=== PATIENT | male | born 1950 | race Caucasian/White ===

== ENCOUNTER 2020-12-02 17:22 | Inpatient (IN) | payer OTHER, MEDICAID ==
[~2020-12-02] VITALS: Ht 180.3 cm; Wt 71.7 kg
[2020-12-02 17:25] VITALS: BP_SYST 152
--- NOTE | 2020-12-02 17:25 | NUR ---
Placed in room 4 . Placed on scientist engineer, blood pressure machine and pulse oximeter. To gown for exam. Side rails up. Report given to ADOLPH FREDERICK
--- NOTE | 2020-12-02 17:28 | NUR ---
PT BIBA FROM [facility] SENT BY DR. SALINAS. PT HAS BEEN C/O ABD PAIN HAD ABNORMAL LABS COME BACK TODAY WBC 24.6. PT HAD SMALL BOWEL RESECTION 10/29/20 [facility]- WOUND HAS PURULENT DRAINAGE. HX OF COLON CA. PT ARRIVES WITH RODRÍGUEZ CATH, UROSTOMY, COLOSTOMY. PT IS AAOX4, V/S STABLE
[2020-12-02] MEDS ORDERED: NACL 0.9% 1,000 ML IV ONE ×2 (17:45→19:15)
[2020-12-02] MEDS ORDERED: ACET325C6 PO (17:57)
[2020-12-02] MEDS ORDERED: ZIN220 PO (17:57)
[2020-12-02] MEDS ORDERED: CAT.1 PO (17:57)
[2020-12-02] MEDS ORDERED: FAMO10TA41 PO (17:57)
[2020-12-02] MEDS ORDERED: LISI-652 PO (17:57)
[2020-12-02] MEDS ORDERED: MEGE400O4 GT (17:57)
[2020-12-02] MEDS ORDERED: CRAN500T PO (17:57)
[2020-12-02] MEDS ORDERED: BUSP7.5T7 PO (17:57)
[2020-12-02] MEDS ORDERED: ARGI1POW13 PO (17:57)
[2020-12-02] MEDS ORDERED: ONDA-8 TL (17:57)
[2020-12-02] MEDS ORDERED: NOR10 PO (17:57)
[2020-12-02] MEDS ORDERED: ASC500 PO (17:57)
[2020-12-02] MEDS ORDERED: DULR10 RC (17:57)
[2020-12-02] MEDS ORDERED: HYDR-3919 PO (17:57)
[2020-12-02] MEDS ORDERED: CHOL100034 PO (17:57)
[2020-12-02] MEDS ORDERED: CALMO120 TP (17:57)
[2020-12-02] MEDS ORDERED: AMIN30LI26 PO (17:57)
[2020-12-02] MEDS ORDERED: LOVI40 SQ (17:57)
[2020-12-02] MEDS ORDERED: SERT-436 PO (17:57)
[2020-12-02] MEDS ORDERED: ATOR20TA64 PO (17:57)
--- NOTE | 2020-12-02 17:57 | NUR ---
Medication reconciliation completed with information provided by [facility]. Any prior medication reconciliation on file was reviewed and corrected.
[2020-12-02 18:18] LABS: BILIRUBIN,URINE 1+ (NEGATIVE); BLOOD, URINE 3+ (NEGATIVE); CLARITY/URINE TURBID (CLEAR); COLOR,URINE YELLOW (YELLOW); GLUCOSE,URINE NEGATIVE (NEGATIVE); KETONES,URINE NEGATIVE (NEGATIVE); LEUKOCYTE ESTERASE ,URINE 3+ (NEGATIVE); NITRITE, URINE NEGATIVE (NEGATIVE); PROTEIN URINE 2+ (NEGATIVE); UROBILINOGEN,URINE 0.2 (0.2-1.0)
[2020-12-02 18:24] LABS: HEMATOCRIT 35.8 % (36-54); HEMOGLOBIN 12.4 g/dL (14.0-18.0); MEAN CORPUSCULAR HEMOGLOBIN 28 pg (27-31); MEAN CORPUSCULAR HGB CONC 35 % (32-36); MEAN CORPUSCULAR VOLUME 80 fL (79.0-98.0); PLATELET COUNT (AUTO) 519 K/uL (130-430); RED CELL DISTRIBUTION WIDTH 16.2 % (9.0-15.0)
[2020-12-02 18:28] LABS: ANION GAP 14 (5-15); CALCIUM 9.1 mg/dL (8.4-11.0); CHLORIDE 88 mmol/L (98-107); CREATININE 1.55 mg/dL (0.55-1.30); GLUCOSE 127 mg/dL (70-99); POTASSIUM 4.4 mmol/L (3.5-5.1); SODIUM SERUM 120 mmol/L (136-145); UREA NITROGEN, BLOOD 65 mg/dL (8-21)
[2020-12-02 18:34] LABS: ALANINE AMINOTRANSFERASE 29 U/L (12-78); ALBUMIN 3.6 g/dL (3.4-4.8); ASPARTATE AMINOTRANSFERASE 25 U/L (10-37); TOTAL BILIRUBIN 0.3 mg/dL (0.0-1.0)
[2020-12-02 18:38] LABS: INR 1.1 (0.80-1.20); PROTHROMBIN TIME 11.5 SECS (9.5-12.5)
--- NOTE | 2020-12-02 18:47 | NUR ---
Pt resting in [facility] at this time, comfortable watching tv no complaints
[2020-12-02 18:53] LABS: BAND % (MANUAL) 4 % (0-6); LYMPHOCYTES % (MANUAL) 3 % (20-46); MONOCYTES % (MANUAL) 6 % (0-11)
[2020-12-02 18:54] LABS: BASOPHILS % (MANUAL) 0 % (0-2); BLASTS, MANUAL % 0 % (0-0); EOSINOPHILS % (MANUAL) 0 % (0-7); METAMYELOCYTES % 0 % (0-0); MYELOCYTES % 0 % (0-0); OTHER CELLS,MANUAL % 0 (0-0); PROMYELOCYTES % 0 % (0-0)
[2020-12-02 18:56] LABS: RBC,URINE 20-50 /HPF (0-3); WBC,URINE >100 /HPF (0-3)
[2020-12-02 18:57] LABS: BACTERIA,URINE MANY /HPF (None Seen); MUCUS,URINE None Seen /LPF (None Seen); URINE AMORPHOUS PHOSPHATES 3+ /HPF (None Seen)
--- NOTE | 2020-12-02 19:12 | NUR ---
Received report from ADOLPH Meyer.
[2020-12-02] MEDS ORDERED: PIPERACILLIN/TAZO 3.375 GM in NS 50 ML IV ONE (19:15)
[2020-12-02] MEDS ORDERED: VANCOMYCIN HCL 1,000 MG in NS 250 ML IV ONE (19:15)
[2020-12-02] MEDS ORDERED: PIPERACILLIN/TAZOBACTAM 3.375 GM/VIAL (ZOSYN) IV ONE (19:16)
--- NOTE | 2020-12-02 19:33 | NUR ---
COVID-19 and MRSA swabs collected and sent to lab.
[2020-12-02] MEDS ORDERED: VANCOMYCIN HCL 1000 MG/VIAL IV ONE (20:33)
--- NOTE | 2020-12-02 21:03 | NUR ---
Re-position patient.
--- NOTE | 2020-12-02 22:02 | NUR ---
Patient will be admitted to care of . Admitted to TELE unit. Will go to room 121A. Belongings list completed. Complete and up to date summary report printed. SBAR report to be given at bedside with opportunity for questions.
--- NOTE | 2020-12-02 22:20 | NUR ---
ADMISSION NOTE Received patient from ER via jeferdiya, received report from NOVEMBER RN. Patient admitted with diagnosis of SEPSIS, UTI. Patient oriented to hospital routine, call light, toileting and safety-patient verbalized understanding.
[2020-12-02] MEDS: D5/0.45 NS 1,000 ML IV SCH (22:38)
[2020-12-02 22:43] VITALS: BP_SYST 105
--- NOTE | 2020-12-02 23:37 | NUR ---
CONSULTATION PAGED/CALLED Reason for Consultation: SEPSIS Person Who was Notified: ALEXSANDRA Consulting Physician: SUMAN Adjunct Instructor Of Women'S Studies Specialty: Ordering Physician: BRAD
--- NOTE | 2020-12-02 23:42 | NUR ---
CONSULTATION PAGED/CALLED Reason for Consultation: CA COLOON,COLOSTOMY Person Who was Notified: ALEXSANDRA Consulting Physician: DR MELODIE HEWITT IS CHIEF BUILDING INSPECTOR Millwright Apprentice Specialty: GI Ordering Physician: BRAD
--- NOTE | 2020-12-03 02:00 | NUR ---
HIGH ALERT NOTE: DIRECTLY SPOKE WITH DR. SAUER AT BEDSIDE, NOTIFIED THAT PATIENT MIGHT NEED PAIN MEDICATION FOR WOUND CARE TREATMENT, MD ORDERED ONE TIME DOSE FOR SEVERE PAIN IF NEEDED MORPHINE 2MG IVP ONCE.
[2020-12-03] MEDS ORDERED: PIPERACILLIN/TAZOBACTAM 4.5 GM/VIAL (ZOSYN) IV ONE (03:08)
[2020-12-03] MEDS ORDERED: MORPHINE 2 MG/ML INJ. SYRINGE IVP ONE (04:45)
[2020-12-03] MEDS: PIPERACILLIN/TAZO 4.5GM/DEX-IS 100 ML IV SCH ×3 (05:31→23:12)
[2020-12-03] MEDS: D5/0.45 NS 1,000 ML IV SCH ×3 (05:32→15:27)
--- NOTE | 2020-12-03 06:43 | NUR ---
PATIENT WAS SLEEPING MOST OF THE SHIFT, WOKE UP AND ASKED FOR PAIN MEDICATION FOR SEVERE PAIN AT 0640, MORPHINE 2MG GIVEN AT 0643, PATIENT TOLERATED IT WELL. WOUND CARE DONE, HYGIENE CARE DONE WITH BACK HANGER. FALL/SAFETY/ASPIRATION PRECAUTIONS. NEED MET THROUGHOUT THE SHIFT, WILL ENDORSE CARE TO MORNING SHIFT RN.
--- NOTE | 2020-12-03 07:10 | NUR ---
OPENING NOTE RECEIVED SBAR FROM NIGHT RN, PATIENT IN BED, RESPIRATIONS EVEN, NON LABORED, BED IN LOW AND LOCKED POSITION CALL LIGHT WITHIN REACH, IVF'S RUNNING ORDERED,
[2020-12-03 07:50] LABS: ALANINE AMINOTRANSFERASE 24 U/L (12-78); ALBUMIN 2.8 g/dL (3.4-4.8); ANION GAP 13 (5-15); ASPARTATE AMINOTRANSFERASE 17 U/L (10-37); CALCIUM 8.8 mg/dL (8.4-11.0); CHLORIDE 93 mmol/L (98-107); CHOLESTEROL 70 mg/dL (<200); CREATININE 0.95 mg/dL (0.55-1.30); GLUCOSE 100 mg/dL (70-99); HDL CHOLESTEROL 42 mg/dL (>45); LDL CHOLESTEROL 18 mg/dL (<100); SODIUM SERUM 122 mmol/L (136-145); TOTAL BILIRUBIN 0.5 mg/dL (0.0-1.0); TRIGLYCERIDES 128 mg/dL (30-150); UREA NITROGEN, BLOOD 48 mg/dL (8-21)
[2020-12-03 08:00] VITALS: BP_SYST 118
[2020-12-03 08:01] LABS: BASOPHILS % (AUTO) 0.2 % (0.0-2.0); EOSINOPHILS % (AUTO) 0.2 % (0.0-4.0); HEMATOCRIT 36.8 % (36-54); HEMOGLOBIN 12.2 g/dL (14.0-18.0); LYMPHOCYTES # (AUTO) 0.3 K/uL (1.0-5.5); LYMPHOCYTES % (AUTO) 1.7 % (20.5-51.5); MEAN CORPUSCULAR HEMOGLOBIN 27 pg (27-31); MEAN CORPUSCULAR HGB CONC 33 % (32-36); MEAN CORPUSCULAR VOLUME 82 fL (79.0-98.0); MONOCYTES # (AUTO) 0.9 K/uL (0.0-1.0); MONOCYTES % (AUTO) 4.8 % (1.7-9.3); NEUTROPHILS # (AUTO) 17.4 K/uL (1.8-7.7); NEUTROPHILS % (AUTO) 93.1 % (40.0-70.0); PLATELET COUNT (AUTO) 338 K/uL (130-430); RED BLOOD CELL COUNT(AUTO) 4.52 MIL/uL (4.2-6.2); RED CELL DISTRIBUTION WIDTH 16.6 % (9.0-15.0); WHITE BLOOD COUNT (AUTO) 18.7 K/uL (4.8-10.8)
[2020-12-03] MEDS: VANCOMYCIN HCL 1,000 MG in NS 250 ML IV SCH ×2 (09:18→21:06)
--- NOTE | 2020-12-03 10:00 | NUR ---
NURSE NOTE PATIENT IN BED, RESPIRATIONS EVEN, NON LABORED, BED IN LOW AND LOCKED POSITION, CALL LIGHT WITHIN REACH, BED ALARM ON
[2020-12-03] MEDS ORDERED: MORPHINE 2 MG/ML INJ. SYRINGE IVP PRN (10:30)
[2020-12-03] MEDS: MORPHINE 2 MG/ML INJ. SYRINGE IVP PRN ×2 (11:58→21:07)
[2020-12-03 12:08] VITALS: BP_SYST 109
--- NOTE | 2020-12-03 12:58 | NUR ---
WOUND EVALUATION: Wound Consult received from Dr. Chatman. Thank you, Dr. Chatman, for the consult. Patient received in a Yoel Bed with an Isoflex BANDAR mattress, awake, alert, confused. Patient is unable to turn in bed independently. Сергей Score is a 14. Past Medical History: Cancer, Urostomy, Fistula, Colostomy, Bowel Resection, Colon Cancer. Recent Labs: WBC 18.7, RBC 4.52, hemoglobin 12.2, hematocrit 36.8, sodium 122, chloride 93, BUN 48, creatinine 0.95, glucose 100, albumin 2.8, D-dimer 891. Microbiology: Blood culture results x2 in progress. Urine culture results in progress. MRSA screen results in progress. Abdominal wound culture results in progress. Intrinsic factors that delay wound healing: Hypoalbuminemia, cancer. Extrinsic factors that delay wound healing: Decreased mobility. Wound Assessment: 1. Upper Abdomen: Dehisced surgical incision, present on admission. Wound bed has 95% yellow tissue, 5% red tissue. No odor, no drainage. Periwound intact. Wound measures 7.5 cm x 0.4 cm x 0.7 cm. Recommend: Cleanse wound with normal saline. Apply SurePrep to rohan-wound. Apply Hydrogel to wound bed. Pack wound with 1/4 inch iodoform packing strip. Cover with alginate dressing, then foam dressing. Perform wound care daily, and as needed for dressing soiling or dislodgement. 2. Upper Abdomen, Inferior to Site 1: Small dehisced surgical incision, present on admission. Wound bed has 100 pink tissue. No odor, no drainage. Periwound intact. Wound measures 0.4 cm x 0.7 cm. 3. Lower Abdomen, Inferior to Site 2: Small vertical linear lesion, present on admission. Wound bed has 100 pink tissue. No odor, moderate serous drainage. Periwound intact. Wound measures 1.3 cm x 0.1 cm. Lesion widens with trunk flexion. Recommend: Cleanse involved and surrounding areas with normal saline. Pat dry. Apply Jeff's ring around sites 2 and 3. Cut wound pouch to size and place over sites 2 and 3. Pouch may overlap existing colostomy and urostomy pouches, and dressing for site 1. Change pouch every 5 days and as needed for pouch dislodgment or leakage. 4. Sacral area: Erythema from IAD with MASD, present on admission. Open area has 100% dark red tissue. No odor, scant sanguineous drainage. Periwound intact. Open area measures 1.7 cm x 1.4 cm. Recommend: Cleanse wound with normal saline. Apply SurePrep to rohan-wound. Apply Hydrogel to wound bed. Cover with foam dressing. Perform wound care daily, and as needed for dressing soiling or dislodgement. 5. Scrotal area: Erythema from IAD, present on admission. Recommend: Cleanse involved area with mild soap and water. Pat dry. Apply moisture barrier cream to involved area. Perform site care 4 times daily, and as needed for soiling. Also recommend: Encourage and assist patient with repositioning side to side only every 2 hours with pillow support and off-load pressure areas with pillows for pressure re-distribution. Offload, elevate and float bilateral heels with pillows. Perform skin care and monitor skin integrity Q shift. Use moisture barrier cream on buttocks and other moisture susceptible areas QID and as needed for soiling. Initiate low air-loss therapy.
--- NOTE | 2020-12-03 13:16 | NUR ---
CONSULTATION PAGED REASON FOR CONSULTATION:OSTOMY EVAL WAS CONSULT CALED?Y PERSON WHO WAS NOTIFIED:AMRIT CONSULTING PHYSICIAN:PATRICIA LANDAVERDE (MATHEW UMAÑA BODILY INJURY ADJUSTER) BIOLOGICAL PHOTOGRAPHER SPECIALTY:SURGEON BIOLOGICAL PHOTOGRAPHER PHONE NUMBER:[phone] REQUESTING PHYSICIAN:ANURAG WAGGONER
--- NOTE | 2020-12-03 13:17 | NUR ---
CONSULTATION PAGED/CALLED Reason for Consultation: [] ostomy eval Person Who was Notified: [] Pavel Consulting Physician: [] DR SALEH, MATHEW ONC ALL FOR DR FERN MORLEY Gas Maker Specialty: [] GEN SURGEON Ordering Physician: [] DR SALINAS (SOCIAL INSURANCE ANALYST TERESA WAGGONER)
--- NOTE | 2020-12-03 14:41 | NUR ---
MADE A CALL TO [facility], REQUESTING [facility] RECORDS WHEN PT WENT THERE FOR BOWEL OBSTRUCTION. SPOKE TO
--- NOTE | 2020-12-03 15:54 | NUR ---
NURSE NOTE PATIENT IN BED, RESPIRATIONS EVEN, NON LABORED, BED IN LOW AND LOCKED POSITION CALL LIGHT WITHIN REACH, BED ALARM ON, IVF'S RUNNING ORDERED, RODRÍGUEZ DRAINING BY GRAVITY, OSTOMY DRAINING BY GRAVITY
[2020-12-03 16:13] VITALS: BP_SYST 139
--- NOTE | 2020-12-03 19:15 | NUR ---
CLOSING NOTE PROVIDED SBAR TO NIGHT RN, PATIENT IN BED RESPIRATIONS EVEN, NON LABORED, BED IN LOW AND LOCKED POSITION CALL LIGHT WITHIN REACH, BED ALARM ON, IVF'S RUNNING ORDERED, UROSTOMY DRAINING BY GRAVITY, OSTOMY DRAINING BY GRAVITY.
[2020-12-03 20:05] VITALS: BP_SYST 108
--- NOTE | 2020-12-03 23:58 | NUR ---
PATIENT COMPLAINED OF A HEADACHE, NOTIFIED DR. BRAD MD ORDERED TYLENOL 650MG Q4H PRN FOR MILD PAIN AND/OR HEADACHE.
[2020-12-04] MEDS ORDERED: ACETAMINOPHEN 325 MG TABLET PO PRN
[2020-12-04] MEDS ORDERED: ACETAMINOPHEN 325 MG TABLET ONE (00:20)
[2020-12-04 00:30] VITALS: BP_SYST 108
[2020-12-04] MEDS: PIPERACILLIN/TAZO 4.5GM/DEX-IS 100 ML IV SCH ×3 (05:12→21:09)
[2020-12-04] MEDS: D5/0.45 NS 1,000 ML IV SCH ×3 (05:13→21:09)
--- NOTE | 2020-12-04 08:00 | NUR ---
Initial notes Awake, alert refuses to eat breakfast. has right urostomy draining well and left colostomy with soft stool. patient also had a drainage bag place on the middle abdomen (surgical incision)with scant drainage at this time. IVF infusing well. Patient also refuses lab draw. All needs meet at this time. call light in reach
[2020-12-04 08:11] VITALS: BP_SYST 123
--- NOTE | 2020-12-04 08:52 | NUR ---
Nutrition Update Сергей Scale 15 noted. Pt admitted for sepsis and UTI. Diet: pureed BMI: 22.2 kg/m2 RD to follow per nutrition care standards.
[2020-12-04] MEDS: VANCOMYCIN HCL 1,000 MG in NS 250 ML IV SCH ×2 (08:57→21:08)
[2020-12-04] MEDS ORDERED: FAMOTIDINE 20 MG TABLET PO ONE (09:00)
--- NOTE | 2020-12-04 11:00 | NUR ---
Notes- Talking on the phone, No distress noted.
[2020-12-04 11:26] VITALS: BP_SYST 119
--- NOTE | 2020-12-04 15:00 | NUR ---
Notes Seen by Radha LA), informed that patient refused Blood draw and wants PICC line.
[2020-12-04 15:37] VITALS: BP_SYST 113
[2020-12-04] MEDS ORDERED: VITS A AND D/WHITE PET/LANOLIN 113.4 GM TUBE TP PRN (16:45)
--- NOTE | 2020-12-04 18:21 | NUR ---
Notes Talking on the phone, no distress noted. all needs meet. will endorse
[2020-12-04 19:00] VITALS: BP_SYST 120
--- NOTE | 2020-12-04 19:15 | NUR ---
change of shift.pt.presents isolation status contact;mrsa nares.i am to apprisjhonny bucio;tone of the +mrsa sample.pt.presents quiescnet affect;calm,resting.wounds:mid-line;abdomen.pt.presents colostomy;llq abdomen;urostomy;rlq e w colostomy as collection for mid abdomen wound.all x3 intact.pt.presents iv access location:lt.antecubital intact;iv fluids infusing.pt.presents bedrest status.lower extremity weakness.pt.presents wounds.general status stable.respiratory status stable;unlabored @ room air.call light/telephone w/in access of the pt.
[2020-12-04 20:00] VITALS: BP_SYST 120
--- NOTE | 2020-12-04 20:00 | NUR ---
pt.assessed.v/s assessed values wnl.no c/o pain,nausea.iv aCCESs intaCT IV FLUIDS INFUSING.UROSTOMY,COlosToMY INtACT.urine/fecal matter present.mid line colostomy collection intact.pt.assessed for cleanliness.pt.repositioned.i have apprised the pt.that snacks/beverages are available w/in the shift.no requests posited@this hour.general status stable. respiratory status stable.call light/telephone placed w/in access of the pt.
--- NOTE | 2020-12-04 21:00 | NUR ---
2100pmedications administered..pt.capable to ingest the po medications w/out difficulty.pt.had requested medication;pain. pt.requested specifically tylenol extra strength. to be paged re:pt's request. jeff cintron.
[2020-12-04] MEDS: ACETAMINOPHEN 325 MG TABLET PO PRN (21:07)
[2020-12-04] MEDS: FAMOTIDINE 20 MG TABLET PO SCH (21:08)
[2020-12-04] MEDS ORDERED: ACETAMINOPHEN 500 MG TABLET PO PRN (21:30)
--- NOTE | 2020-12-04 21:30 | NUR ---
paged return page.i apprised of the pt's requests tylenol extra-strength. ordered tylenol extra strentgh: 1000mg po q-6hrs;prn pain.i have administered the medication.to assess the efficacy of the pain medication per pain mgx protocol.
--- NOTE | 2020-12-04 22:00 | NUR ---
pt.was to submit to lab draws@this hour. pt.refused.pt.requested a picc line for the collection of blood samples.i paged r/e:pt's requests picc line for lab draws. ordered placement picc line.
--- NOTE | 2020-12-05 | NUR ---
pt.assessed.v/s assessed values wnl.no c/o pain,nausea.urostomy,colostomy intact;urine/fecal matter present respectively. iv access intact iv fluids infusing.pt.assessed for cleanliness pt.repositioned.general status stable.respiratory status stable. call light/telephone placed w/in access of the pt.
[2020-12-05 00:38] VITALS: BP_SYST 137
--- NOTE | 2020-12-05 02:00 | NUR ---
pt.assessed.pt.presented agitated affect.pt.requested medication.pain. paged.i apprised of the pt's.requests; pain/sleep medication. ordered:norco:5/325mg po 1 tab q-6hrs/prn.restoril:15mg po q-hs/prn.
[2020-12-05] MEDS ORDERED: NALOXONE HCL 0.4 MG/ML AMP (NARCAN) IVP PRN (02:30)
[2020-12-05] MEDS ORDERED: TEMAZEPAM 7.5 MG CAPSULE PO PRN (02:30)
[2020-12-05] MEDS ORDERED: HYDROcodone/ACETAMIN 5-325 MG TAB (NORCO/ VICODIN) PO PRN (02:30)
--- NOTE | 2020-12-05 02:30 | NUR ---
i have administered norco;5/325mg po;pain.restoril:15mg po;sleep.no additional requests posited@this hour.call light/telephone placed w/in access of the pt.
--- NOTE | 2020-12-05 04:00 | NUR ---
pt.assessed.pt.presents quiescent affect;calm,somnolent.per flacc pain mgx pt.absent facial grimaces/body posturing. iv access intact iv fluids infusing.general status stable.respiratory status stable.call light/telephone w/in access of the pt.
[2020-12-05] MEDS: D5/0.45 NS 1,000 ML IV SCH ×3 (04:15→20:41)
--- NOTE | 2020-12-05 06:28 | NUR ---
pt.assessed.pt.presents quiescent affect;calm,somnolent.per flacc pain mgx pt.absent facial grimaces/body posturing. iv fluids infusing.i have administered zosyn abx ivpb 0600a dose.pt.reposition.urostomy/colostomy intact urine/fecal matter present.mid line abdomen wound colostomy intact.general status stable.respiratory status stable;unlabored. call light/telephne w/in access of the pt.
[2020-12-05] MEDS: PIPERACILLIN/TAZO 4.5GM/DEX-IS 100 ML IV SCH ×3 (06:47→21:33)
--- NOTE | 2020-12-05 06:55 | NUR ---
INITIAL NOTE AT INITIAL ASSESSMENT, PATIENT IS RESTING IN BED, STABLE, NO SIGNS OF RESPIRATORY DISTRESS. PATIENT VERBALIZES TOLERABLE PAIN. PLAN OF CARE FOR THE EVENING IS COMMUNICATED WITH THE PATIENT. PATIENT DEMONSTRATES CORRECT USAGE OF CALL LIGHT AT THIS TIME. BED IS LOCKED, ALARMED, AND AT THE LOWEST LEVEL. FALL SAFETY EDUCATION PROVIDED. FALL, SAFETY, ISOLATION, AND RESPIRATORY PRECAUTIONS WILL BE TAKEN THROUGHOUT THE SHIFT. Addendum: 12/06/20 at 0657 by Janett Casas RN NOTE INTENDED FOR DIFFERENT TIME
[2020-12-05] MEDS ORDERED: GASTROGRAFIN 120 ML ONE (06:56)
--- NOTE | 2020-12-05 07:40 | NUR ---
Opening note Patient is sitting in bed A&O x3 patient has moments of forgetfulness, easily reoriented. Patient is uncooperative, does not want to be here, refuses PICC line placement, provided education and patient still refused. IV was discontinued because it is infiltrated. Will attempt to place another one. no signs or symptoms of respiratory distress. Educated patient on plan of care, patient verbalized understanding but is frustrated, wants to go home. Informed patient that I will talk with their doctor. Bed is in lowest postion, call light within reach fall and aspiration precautions are in place. will continue to monitor.
[2020-12-05 08:20] VITALS: BP_SYST 115
[2020-12-05] MEDS: FAMOTIDINE 20 MG TABLET PO SCH ×2 (08:25→20:37)
[2020-12-05] MEDS: MUPIROCIN 2% TOPICAL OINTMENT 22 GM NS SCH ×2 (08:25→21:33)
[2020-12-05] MEDS: VANCOMYCIN HCL 1,000 MG in NS 250 ML IV SCH ×2 (09:00→20:38)
--- NOTE | 2020-12-05 09:02 | NUR ---
MD rounds Dr. Muhammad assessed patient, recommends patient be discharged back to [facility]. No new orders at this time, will refer to md notes.
--- NOTE | 2020-12-05 10:20 | NUR ---
RN note Attempted to place another IV, but patient refused. Provided education and patient still refused.
--- NOTE | 2020-12-05 14:48 | NUR ---
Dietitian Recommendations * Recommend pureed diet w/ Ensure Enlive TID, Sea BID (supplements provide an additional 1240 kcal/day, 65 gm protein/day) * Encourage increase PO intakes LP, RD Please refer to Nutrition Assessment for details. Addendum: 12/05/20 at [address] Amended: Links added.
--- NOTE | 2020-12-05 14:50 | NUR ---
RN note Patient agreed to receive a midline. MD aware.
--- NOTE | 2020-12-05 15:40 | NUR ---
Rn note PICC line nurse is here and is placing Midline on patient.
[2020-12-05] MEDS: ACETAMINOPHEN 325 MG TABLET PO PRN (18:15)
--- NOTE | 2020-12-05 18:54 | NUR ---
Closing note Patient is sitting in bed A&O x4, anxious to leave the hospital, provided education regarding discharge. Midline is in place and patent. Bed is in lowest position call light within reach, fall and aspiration precaution are in place. Will endorse report to light industrial.
--- NOTE | 2020-12-05 19:50 | NUR ---
INITIAL NOTE AT INITIAL ASSESSMENT, PATIENT IS RESTING IN BED, STABLE, NO SIGNS OF RESPIRATORY DISTRESS. PATIENT VERBALIZES TOLERABLE PAIN. PLAN OF CARE FOR THE EVENING IS COMMUNICATED WITH THE PATIENT. PATIENT DEMONSTRATES CORRECT USAGE OF CALL LIGHT AT THIS TIME. BED IS LOCKED, ALARMED, AND AT THE LOWEST LEVEL. FALL SAFETY EDUCATION PROVIDED. FALL, SAFETY, ISOLATION, AND RESPIRATORY PRECAUTIONS WILL BE TAKEN THROUGHOUT THE SHIFT.
[2020-12-05 20:00] VITALS: BP_SYST 128
[2020-12-05] MEDS: MORPHINE 2 MG/ML INJ. SYRINGE IVP PRN (21:28)
--- NOTE | 2020-12-05 23:00 | NUR ---
WOUND CARE NOTE WOUND IS PROVIDED AT THIS TIME, HYGIENE CARE ALSO PROVIDED. PATIENT TOLERATED WELL. CALL LIGHT PLACED WITHIN REACH. BED IS LOCKED, ALARMED, AND AT THE LOWEST LEVEL. Addendum: 12/06/20 at 0705 by Janett Casas RN PATIENT WOUND CARE ON HIS ABDOMEN DESPITE EDUCATIONAL EFFORTS.
[2020-12-06] VITALS: BP_SYST 118
[2020-12-06] MEDS: D5/0.45 NS 1,000 ML IV SCH (05:18)
[2020-12-06] MEDS: PIPERACILLIN/TAZO 4.5GM/DEX-IS 100 ML IV SCH (05:18)
--- NOTE | 2020-12-06 06:13 | NUR ---
pt was yelling in room with door closed went in to check on pt and ask why pt was yelling and what he needed states i have been calling for hours for fresh water redirected pt to use call light architectural practice manager was aware and would bring water pt states im leaving and will scream if i feel like it, and if you your fingers know how to work go do something and turn the light on. redirected people not to speak to staff that way and to use calling if in the future he needed anything
--- NOTE | 2020-12-06 06:15 | NUR ---
pt yelling again went in pt room and redirected him to use call light and to stop yell, pt states im leaving and i can do what ever i feel like nurse shinping aware
--- NOTE | 2020-12-06 06:57 | NUR ---
BEHAVIOR/ CLOSING NOTE DESPITE ALL OF THE PATIENT'S SEVERAL REQUESTS PER MINUTE THAT WERE MET, FOR THINGS SUCH "THIS CORNER OF THE BLANKET ISN'T FLATTENED OUT", PATIENT WAS RUDE UNCOOPERATIVE, AND KEPT STATING "I CAN'T WAIT TO LEAVE THIS TERRIBLE PLACE, COVID IS A [place] VIRUS,". PATIENT SLEPT WELL THROUGHOUT THE SHIFT, NO SHORTNESS OF BREATH NOTED. AT THIS TIME, PATIENT IS RESTING IN BED, STABLE, NO SIGNS OF RESPIRATORY DISTRESS. CALL LIGHT IS WITHIN REACH. BED IS LOCKED, ALARMED, AND AT THE LOWEST LEVEL. FALL, SAFETY, ISOLATION, AND RESPIRATORY PRECAUTIONS HAVE BEEN TAKEN THROUGHOUT THE SHIFT. WILL CONTINUE TO MONITOR UNTIL SHIFT REPORT IS GIVEN AT BEDSIDE TO AM NURSE.
[2020-12-06 08:00] VITALS: BP_SYST 146
--- NOTE | 2020-12-06 08:00 | NUR ---
PATIENT IS RESTING IN BED, VS WNL NO SIGNS OF RESPIRATORY DISTRESS. PATIENT VERBALIZES WOULD LIKE TYLENOL FOR SINUS POZO. AAO X4 IVF INFUSING RIGHT MIDLINE. BED IS LOCKED, ALARMED, AND AT THE LOWEST LEVEL. FALL SAFETY PRECAUTIONS IN PLACE. WILL CONTINUE TO MONITOR
[2020-12-06] MEDS: FAMOTIDINE 20 MG TABLET PO SCH (08:29)
[2020-12-06] MEDS: ACETAMINOPHEN 325 MG TABLET PO PRN (08:31)
[2020-12-06] MEDS: VANCOMYCIN HCL 1,000 MG in NS 250 ML IV SCH (08:57)
[2020-12-06] MEDS: MUPIROCIN 2% TOPICAL OINTMENT 22 GM NS SCH (08:58)
--- NOTE | 2020-12-06 10:40 | NUR ---
DCP Notes TOOL DESIGN CHECKER called [facility] center, , no answer, left a message, will try again. Addendum: 12/06/20 at 1125 by Berkley Decker MSW DCP Notes TOOL DESIGN CHECKER spoke to Shamika from the transfer center, took down info. TOOL DESIGN CHECKER will fax over info. to [phone]. Packet faxed over to [facility].
[2020-12-06] MEDS ORDERED: LEVOFLOXACIN IN DEXTROSE 5 % 100 ML IV SCH (13:00)
[2020-12-06] MEDS: MORPHINE 2 MG/ML INJ. SYRINGE IVP PRN (13:14)
[2020-12-06 14:58] VITALS: BP_SYST 131
[2020-12-06] MEDS ORDERED: ACETAMINOPHEN 500 MG TABLET PO PRN (16:30)
[2020-12-06 16:58] VITALS: BP_SYST 131
--- NOTE | 2020-12-06 18:40 | NUR ---
PT TRANSFERRED Report given to Tian[place] at [facility]. Transfer packet with Transfer Orders and Medication Reconciliation form given to EMT with report. Exit care provided. [facility] ID band removed, replaced with ID band with pt's name and . Midline left in place intact and dressing applied, no active bleeding. All belongings sent with patient. Patient left floor via gurney escorted by EMT in no distress.
[2020-12-06] MEDS ORDERED: MUPIROCIN 1 GM OIN.PF.APP NS SCH (21:00)
== END 2020-12-06 18:45 | disposition short-term general hospital (02) | DRG 872 ==
LOC: SED 17:22 → STU 20:22
PROVIDERS: ADMIT Internal Medicine; ATTEND Internal Medicine
DX: A41.9 Sepsis, unspecified organism (principal); T81.30XA Disruption of wound, unspecified, initial encounter; N13.6 Pyonephrosis; K56.7 Ileus, unspecified; I10 Essential (primary) hypertension; Y83.8 Other surgical procedures as the cause of abnormal reaction of the patient, or of later complication, without mention of misadventure at the time of the procedure; D64.9 Anemia, unspecified; Z20.822 Contact with and (suspected) exposure to COVID-19; Z79.899 Other long term (current) drug therapy; Z85.038 Personal history of other malignant neoplasm of large intestine; Z93.3 Colostomy status; Z79.1 Long term (current) use of non-steroidal anti-inflammatories (NSAID); Y92.89 Other specified places as the place of occurrence of the external cause
CPT/HCPCS: 36415; 71045; 76376; 80053; 80061; 81000; 83605; 85007; 85025; 85027; 85379; 85610-TC; 85730-TC; 87040-TC; 87070-TC; 87081; 87086; 93005; 96361; 96365; 96366; 96367; 99291; G0378; J1956; J2270; J2543; J3370; J7050; J7060; Q9963